=== PATIENT | female | born 1965 | race African-American/Black ===

== ENCOUNTER 2016-12-01 07:40 | Outpatient (CLI) | payer OTHER | END 2016-12-01 07:41 | disposition home or self-care (01) | DX: E11.9 Type 2 diabetes mellitus without complications (principal); M79.662 Pain in left lower leg ==

== ENCOUNTER 2017-03-17 07:45 | Outpatient (CLI) | payer OTHER | END 2017-03-17 07:46 | disposition home or self-care (01) | DX: E11.9 Type 2 diabetes mellitus without complications (principal); I10 Essential (primary) hypertension ==

== ENCOUNTER 2017-10-13 14:30 | Outpatient (CLI) | payer OTHER ==
[2017-10-13 13:21] LABS: ALBUMIN/GLOBULIN RATIO 1.1 (1.0-2.2); BILIRUBIN,TOTAL 0.6 mg/dL (0.2-1.0); CALCIUM 9.4 mg/dL (8.5-10.3); CREATININE 0.8 mg/dL (0.4-1.0); HEMOGLOBIN A1C 0.78 g/dL; POTASSIUM 3.9 mmol/L (3.5-5.0); TOTAL PROTEIN 7.4 g/dL (6.7-8.2)
== END 2017-10-13 14:31 | disposition home or self-care (01) ==
LOC: LAB.WCP 14:30
PROVIDERS: ATTEND Family Medicine
DX: M17.4 Other bilateral secondary osteoarthritis of knee (principal); K21.9 Gastro-esophageal reflux disease without esophagitis; E11.9 Type 2 diabetes mellitus without complications; I10 Essential (primary) hypertension
CPT/HCPCS: 36415; 80053; 83036

== ENCOUNTER 2017-11-11 08:00 | Outpatient (CLI) | payer OTHER | END 2017-11-11 08:01 | disposition home or self-care (01) | LOC: LAB.WCP 08:00 | PROVIDERS: ATTEND Family Medicine | DX: J02.9 Acute pharyngitis, unspecified (principal) | CPT/HCPCS: 87070 ==

== ENCOUNTER 2017-12-03 13:37 | Outpatient (CLI) | payer OTHER ==
--- NOTE | 2017-12-03 16:58 | MRI Report ---
EXAM: RIGHT KNEE MRI WITHOUT CONTRAST EXAM DATE: 12/03/2017 03:15 PM. CLINICAL HISTORY: Right knee posterior lateral sprain. COMPARISON: 11/17/2017 radiograph. TECHNIQUE: Multiplanar, multisequence T1-weighted and fluid-sensitive sequences of the knee without c ontrast. Other: None. FINDINGS: Bones: No fractures. Red marrow reconversion is present. Moderate medial compartment, mild lateral co mpartment, and minimal patellofemoral osteophytes are present. Periarticular reactive marrow edema is demonstrated in the medial compartment. Articular Cartilage: The patellofemoral and lateral compartment articular cartilage is intact. There is severe cartilage thinning in the medial compartment. Medial Meniscus: The posterior root of the medial meniscus demonstrates a high-grade partial radial t ear. The body is extruded. Lateral Meniscus: The lateral meniscus is intact. Cruciate Ligaments: The anterior and posterior cruciate ligaments are intact. Collateral Ligaments: The medial collateral and lateral collateral ligamentous structures are intact. Tendons: The quadriceps, patellar, semimembranosus, and popliteus tendons are unremarkable. Musculature: No edema or fatty atrophy. Other: A mild knee effusion is present. A small popliteal cyst is present. No loose bodies. The medi al and lateral retinacula are intact. The subcutaneous tissues and fat pads are unremarkable. IMPRESSION: 1. Moderate osteoarthritis. 2. High-grade partial radial tear of the posterior root of the medial meniscus. 3. Small popliteal cyst. [facility] MUSCULOSKELETAL RADIOLOGY SECTION Referring Provider Line: [phone] SITE ID: [id number]
== END 2017-12-03 13:38 | disposition home or self-care (01) ==
LOC: DI 13:37
PROVIDERS: ATTEND Orthopaedic Surgery
DX: M17.11 Unilateral primary osteoarthritis, right knee (principal); S83.241A Other tear of medial meniscus, current injury, right knee, initial encounter; M71.21 Synovial cyst of popliteal space [Baker], right knee

== ENCOUNTER 2018-02-09 07:42 | Outpatient (CLI) | payer OTHER ==
[2018-02-09 12:31] LABS: ALBUMIN 3.9 g/dL (3.2-5.5); ALBUMIN/GLOBULIN RATIO 1.1 (1.0-2.2); BILIRUBIN,TOTAL 0.5 mg/dL (0.2-1.0); CALCIUM 9.4 mg/dL (8.5-10.3); CREATININE 0.9 mg/dL (0.4-1.0); TOTAL PROTEIN 7.4 g/dL (6.7-8.2)
[2018-02-09 13:24] LABS: HB2 TOTAL 14.4 g/dL; HEMOGLOBIN A1C 0.88 g/dL; HEMOGLOBIN A1C % 7.7 % (4.6-6.2)
== END 2018-02-09 07:43 | disposition home or self-care (01) ==
LOC: LAB.WCP 07:42
PROVIDERS: ATTEND Family Medicine
DX: E11.9 Type 2 diabetes mellitus without complications (principal)
CPT/HCPCS: 36415; 80053; 83036

== ENCOUNTER 2018-04-09 15:50 | Outpatient (CLI) | payer OTHER ==
--- NOTE | 2018-04-13 15:07 | Mammography Report ---
DIGITAL SCREENING MAMMOGRAM: 04/09/2018 TECHNIQUE: Bilateral digital CC and MLO projections. COMPARISON: 04/13/2014, 12/30/2012, 10/10/2011, and 09/30/2010. FINDINGS There are scattered fibroglandular densities. There is increasing bilateral breast density compared with prior studies. Focal areas of new asymmetric density are seen in the upper outer aspect of both breasts and in the inner left breast. No suspicious microcalcifications or skin thickening seen. IMPRESSION GRADUALLY INCREASING BREAST DENSITY COMPARED TO PRIOR STUDIES WITH AREAS OF ASYMMETRY FOR WHICH FURTHER EVALUATION BY SPOT COMPRESSION AND TRUE LATERAL VIEWS AND POSSIBLE ULTRASOUND IS SUGGESTED. BI-RADS 0 - NEEDS ADDITIONAL EVALUATION. STANDARD QUALIFYING STATEMENTS 1. This examination was reviewed with the aid of Computed-Aided Detection (CAD) . 2. A negative or benign imaging report should not delay biopsy if clinically suspicious findings are present. Consider surgical consultation if warranted. More than 5% of cancers are not identified by imaging. 3. Dense breasts may obscure an underlying neoplasm. orig. dictation - incomplete TD: 04/12/2018 16:09 redictation - complete as above TD: 04/13/2018 18:37 revised 04/14/18 prabhu FORMAN
== END 2018-04-09 15:51 | disposition home or self-care (01) ==
LOC: DI 15:50
PROVIDERS: ATTEND Family Medicine
DX: Z12.31 Encounter for screening mammogram for malignant neoplasm of breast (principal)
CPT/HCPCS: 77067

== ENCOUNTER 2018-05-14 12:53 | Outpatient (CLI) | payer OTHER ==
--- NOTE | 2018-05-14 13:27 | Mammography Report ---
Procedure Date: 05/14/2018 Accession Number: [id number] / [id number] Procedure: MICHAEL - Diag Special Views Dig Bilat CPT Code: FULL RESULT: EXAM: Diag Special Views Dig Bilat DATE: 05/14/2018 1:24 PM CLINICAL HISTORY: Bilateral asymmetries TECHNIQUE: Bilateral true lateral and spot compression views COMPARISON: 04/09/2018, 04/13/2014, 12/30/2012, 10/10/2011, 09/30/2010 FINDINGS: The breasts demonstrate scattered fibroglandular densities bilaterally. The regions of asymmetry dissipated evenly on additional compression. No underlying mass lesion or architectural distortion is identified. Coarse, typically benign calcifications are present. IMPRESSION: Benign findings RECOMMENDATION: Recommend routine annual Screening mammography unless otherwise clinically indicated. BIRADS CATEGORY 2: Benign findings STANDARD QUALIFYING STATEMENTS: 1. This examination was reviewed with the aid of Computer-Aided Detection (CAD). 2. A negative or benign imaging report should not delay biopsy if clinically suspicious findings are present. Consider surgical consultation if warrented. More than 5% of cancers are not identified by imaging. 3. Dense breasts may obscure an underlying neoplasm.
== END 2018-05-14 12:54 | disposition home or self-care (01) ==
LOC: DI 12:53
PROVIDERS: ATTEND Family Medicine
DX: N63.11 Unspecified lump in the right breast, upper outer quadrant (principal); N63.21 Unspecified lump in the left breast, upper outer quadrant; N63.24 Unspecified lump in the left breast, lower inner quadrant
CPT/HCPCS: 77066

== ENCOUNTER 2018-06-05 09:05 | Outpatient (CLI) | payer OTHER ==
[2018-06-05 09:44] LABS: CHOL/HDL RATIO 5.2 (<4.4); CHOLESTEROL 206 mg/dL; HDL CHOLESTEROL 40 mg/dL; LDL CHOLESTEROL,CALCULATED 139 mg/dL; LDL/HDL RATIO 3.5 (<4.4); VLDL CHOLESTEROL 27 mg/dL
[2018-06-05 09:46] LABS: HB2 TOTAL 14.2 g/dL; HEMOGLOBIN A1C 0.9 g/dL
== END 2018-06-05 09:06 | disposition home or self-care (01) ==
LOC: LAB 09:05
PROVIDERS: ATTEND Physician Assistant
DX: L70.0 Acne vulgaris (principal); L81.4 Other melanin hyperpigmentation; Z71.89 Other specified counseling; E11.9 Type 2 diabetes mellitus without complications; E78.5 Hyperlipidemia, unspecified
CPT/HCPCS: 80061; 82043; 83036; 83721; 84132

== ENCOUNTER 2018-09-07 08:18 | Outpatient (CLI) | payer OTHER ==
[2018-09-07 13:07] LABS: ALBUMIN 3.7 g/dL (3.2-5.5); ALBUMIN/GLOBULIN RATIO 1.1 (1.0-2.2); BILIRUBIN,TOTAL 0.7 mg/dL (0.2-1.0); CALCIUM 9.5 mg/dL (8.5-10.3); CREATININE 0.7 mg/dL (0.4-1.0); TOTAL PROTEIN 7.2 g/dL (6.7-8.2)
[2018-09-07 13:33] LABS: HB2 TOTAL 13.5 g/dL; HEMOGLOBIN A1C 0.76 g/dL; HEMOGLOBIN A1C % 7.3 % (4.6-6.2)
== END 2018-09-07 08:19 | disposition home or self-care (01) ==
LOC: LAB.WCP 08:18
PROVIDERS: ATTEND Family Medicine
DX: E11.9 Type 2 diabetes mellitus without complications (principal)
CPT/HCPCS: 36415; 80053; 83036

== ENCOUNTER 2018-12-10 07:45 | Outpatient (CLI) | payer OTHER ==
[2018-12-10 13:56] LABS: ALBUMIN 3.6 g/dL (3.2-5.5); ALBUMIN/GLOBULIN RATIO 1.1 (1.0-2.2); BILIRUBIN,TOTAL 0.4 mg/dL (0.2-1.0); CALCIUM 9.4 mg/dL (8.5-10.3); CREATININE 0.7 mg/dL (0.4-1.0)
[2018-12-10 14:54] LABS: HB2 TOTAL 13.3 g/dL; HEMOGLOBIN A1C 0.73 g/dL; HEMOGLOBIN A1C % 7.2 % (4.6-6.2)
== END 2018-12-10 23:59 | disposition home or self-care (01) ==
LOC: LAB.WCP 07:45
PROVIDERS: ATTEND Family Medicine
DX: E11.9 Type 2 diabetes mellitus without complications (principal)
CPT/HCPCS: 36415; 80053; 82043; 83036

== ENCOUNTER 2019-04-27 08:00 | Outpatient (CLI) | payer OTHER ==
[2019-04-27 18:57] LABS: HEMOGLOBIN A1C 0.74 g/dL; HEMOGLOBIN A1C % 7.4 % (4.6-6.2)
== END 2019-04-27 23:59 | disposition home or self-care (01) ==
LOC: LAB.WCP 08:00
PROVIDERS: ATTEND Family Medicine
DX: E11.9 Type 2 diabetes mellitus without complications (principal)
CPT/HCPCS: 36415; 83036

== ENCOUNTER 2019-10-28 07:52 | Outpatient (CLI) | payer OTHER ==
[2019-10-28 13:03] LABS: CREATININE,URINE 274.6 mg/dL; MICROALBUMIN,URINE 6.6 mg/dL (0-300.0)
[2019-10-28 13:17] LABS: CALCIUM 9.4 mg/dL (8.5-10.3)
[2019-10-28 13:34] LABS: HB2 TOTAL 13.3 g/dL; HEMOGLOBIN A1C 0.91 g/dL; HEMOGLOBIN A1C % 8.4 % (4.6-6.2)
== END 2019-10-28 23:59 | disposition home or self-care (01) ==
LOC: LAB.WCP 07:52
PROVIDERS: ATTEND Family Medicine
DX: E11.9 Type 2 diabetes mellitus without complications (principal)
CPT/HCPCS: 36415; 80048; 82043; 82570; 83036; 84443

== ENCOUNTER 2020-01-31 08:03 | Outpatient (CLI) | payer OTHER ==
[2020-01-31 12:28] LABS: CALCIUM 9.5 mg/dL (8.5-10.3)
[2020-01-31 12:40] LABS: CREATININE,URINE 135.3 mg/dL; MICROALBUM/CREATININE RATIO,UR 15.5 ug/mg (<30.0); MICROALBUMIN,URINE 2.1 mg/dL (0-300.0)
[2020-01-31 12:58] LABS: HEMOGLOBIN A1C 0.93 g/dL; HEMOGLOBIN A1C % 8.2 % (4.6-6.2)
== END 2020-01-31 23:59 | disposition home or self-care (01) ==
LOC: LAB.WCP 08:03
PROVIDERS: ATTEND Family Medicine
DX: L70.9 Acne, unspecified (principal); I25.10 Atherosclerotic heart disease of native coronary artery without angina pectoris; E11.9 Type 2 diabetes mellitus without complications; I10 Essential (primary) hypertension
CPT/HCPCS: 36415; 80048; 82043; 82570; 83036

== ENCOUNTER 2020-05-07 10:02 | Outpatient (CLI) | payer OTHER ==
[2020-05-07 12:58] LABS: CALCIUM 9.3 mg/dL (8.5-10.3); CREATININE 0.9 mg/dL (0.4-1.0)
[2020-05-07 13:14] LABS: HEMOGLOBIN A1C 0.93 g/dL; HEMOGLOBIN A1C % 8.2 % (4.6-6.2)
== END 2020-05-07 23:59 | disposition home or self-care (01) ==
LOC: LAB.WCP 10:02
PROVIDERS: ATTEND Family Medicine
DX: E11.9 Type 2 diabetes mellitus without complications (principal)
CPT/HCPCS: 36415; 80048; 83036

== ENCOUNTER 2020-10-11 16:15 | Outpatient (CLI) | payer OTHER ==
--- NOTE | 2020-10-11 16:42 | XRAY Report ---
PROCEDURE: Knee 4 View LT INDICATIONS: LEFT KNEE PAIN TECHNIQUE: 4 views of the left knee(s) were acquired. COMPARISON: None. FINDINGS: Bones: No fractures or dislocations. Moderate medial femoral tibial compartment osteoarthritis is se en. No suspicious bony lesions. Soft tissues: No significant joint effusion. No suspicious soft tissue calcifications. IMPRESSION: Moderate medial femoral tibial compartment osteoarthritis. No fracture or dislocation. N o significant joint effusion. Reviewed by: Maxwell Carter MD on 10/11/2020 4:41 PM PST Approved by: Maxwell Carter MD on 10/11/2020 4:41 PM PST Station ID: [id number]
== END 2020-10-11 16:16 | disposition home or self-care (01) ==
LOC: DI 16:15
PROVIDERS: ATTEND Family Medicine
DX: M17.12 Unilateral primary osteoarthritis, left knee (principal)

== ENCOUNTER 2020-11-05 08:00 | Outpatient (CLI) | payer OTHER ==
[2020-11-05 17:58] LABS: BASOPHILS # (AUTO) 0.1 10^3/uL (0.0-0.1); BASOPHILS % (AUTO) 1.1 %; EOSINOPHILS # (AUTO) 0.3 10^3/uL (0.0-0.7); EOSINOPHILS % (AUTO) 6.2 %; HGB - HEMOGLOBIN 14.3 g/dL (12.0-16.0); LYMPHOCYTES # (AUTO) 1.4 10^3/uL (1.5-3.5); LYMPHOCYTES % (AUTO) 25.3 %; MEAN CORPUSCULAR HEMOGLOBIN 29.5 pg (27.0-31.0); MEAN CORPUSCULAR HGB CONC 31.2 g/dL (32.0-36.0); MEAN CORPUSCULAR VOLUME 94.6 fL (81.0-99.0); MEAN PLATELET VOLUME 9.9 fL (7.9-10.8); MONOCYTES # (AUTO) 0.7 10^3/uL (0.0-1.0); MONOCYTES % (AUTO) 12.2 %; NEUTROPHILS # (AUTO) 2.9 10^3/uL (1.5-6.6); NEUTROPHILS % (AUTO) 54.3 %; PLT - PLATELET COUNT 364 10^3/uL (130-450); RED BLOOD COUNT 4.84 10^6/uL (4.20-5.40); RED CELL DISTRIBUTION WIDTH 13.7 % (12.0-15.0); WHITE BLOOD COUNT 5.3 x10^3/uL (4.8-10.8)
[2020-11-05 18:09] LABS: ALBUMIN 4.1 g/dL (3.2-5.5); ALBUMIN/GLOBULIN RATIO 1.2 (1.0-2.2); BILIRUBIN,TOTAL 0.4 mg/dL (0.2-1.0); CALCIUM 9.7 mg/dL (8.5-10.3); CREATININE 0.9 mg/dL (0.4-1.0); TOTAL PROTEIN 7.6 g/dL (6.7-8.2)
== END 2020-11-05 23:59 | disposition home or self-care (01) ==
LOC: LAB.WCP 08:00
PROVIDERS: ATTEND Family Medicine
DX: R10.9 Unspecified abdominal pain (principal); N93.8 Other specified abnormal uterine and vaginal bleeding
CPT/HCPCS: 36415; 80053; 85025

== ENCOUNTER 2020-11-21 15:54 | Outpatient (CLI) | payer OTHER ==
--- NOTE | 2020-11-22 13:30 | Ultrasound Report ---
PROCEDURE: Pelvic w/Transvaginal INDICATIONS: DYSFUNCTIONAL UTERINE BLEEDING, ABD PAIN TECHNIQUE: Real-time scanning was performed of the pelvic organs, with image documentation. Additional endovagi nal scanning was necessary due to incomplete visualization of the adnexal and endometrial structures by transabdominal scanning. COMPARISON: CT abdomen and pelvis dated 08/17/2007. FINDINGS: Transabdominal scanning: Limited scanning through the kidneys shows no hydronephrosis. No pathologi c free abdominal or pelvic fluid. Endovaginal scanning: Uterus: Uterus is prominent in size at 8.7 x 5.8 x 7.3 cm. There are 3 uterine fibroids identified. One is noted in the right anterior uterus and is intramural in location measuring 2.6 x 3.4 x 1.9 cm. Another is seen in the left anterior uterus, also intramural in location measuring 2.9 x 3.1 x 2.9 c m. The third is seen in a submucosal location within the midline, central uterus measuring 2.1 x 2.0 x 1.8 cm. Uterine echotexture is heterogeneous. Nabothian cysts are noted within the cervix. The endo metrium measures 7 mm in combined thickness. Ovaries: Right ovary not well visualized. Left ovary measures 1.9 x 0.8 x 1.7 cm with ovarian volume of 1.3 mL. There is a minimally complicated left ovarian cyst measuring 1.5 x 0.6 x 0.9 cm demonstra ting a single thin septation versus 2 immediately adjacent simple cysts. IMPRESSION: Multi fibroid uterus with a 2.1 cm submucosal uterine fibroid noted in the midline, central uterus. T his may explain patient's symptoms of dysfunctional uterine bleeding. Unremarkable left ovary. Right ovary is not well-visualized. Reviewed by: Papito Conroy MD on 11/22/2020 12:29 PM [facility] Approved by: Papito oCnroy MD on 11/22/2020 12:29 PM [facility] Station ID: [id number]
== END 2020-11-21 15:55 | disposition home or self-care (01) ==
LOC: DI 15:54
PROVIDERS: ATTEND Family Medicine
DX: N93.8 Other specified abnormal uterine and vaginal bleeding (principal); R10.9 Unspecified abdominal pain; D25.1 Intramural leiomyoma of uterus; D25.0 Submucous leiomyoma of uterus

== ENCOUNTER 2020-12-13 09:06 | Outpatient (CLI) | payer OTHER ==
--- NOTE | 2020-12-14 07:57 | Mammography Report ---
BILATERAL DIGITAL DIAGNOSTIC MAMMOGRAM 3D/2D: 12/13/2020 CLINICAL: Intermitten pain in bilateral breasts. Comparison is made to exams dated: 04/09/2018 mammogram and 04/13/2014 mammogram - [facility]. There are scattered fibroglandular elements in both breasts. No significant masses, calcifications, or other findings are seen in either breast. IMPRESSION: NEGATIVE There is no abnormality seen in either breast to correspond with the pain in the outer aspect, howeve r, clinical followup is recommended. There is no mammographic evidence of malignancy. A 1 year screening mammogram is recommended. This exam was interpreted at Station ID: [id number]. NOTE: For mammograms, a report in lay terms will be sent to the patient. Approximately 15% of breast malignancies will not be visualized mammographically. In the management of a palpable breast mass, a negative mammogram must not discourage biopsy of a clinically suspicious lesion. Electronically Signed By: Jorge Orosco M.D. ddp/:12/13/2020 09:38:43 ACR BI-RADS Category 1: Negative 3341F PARENCHYMAL PATTERN: (A) - The breast(s) demonstrate(s) scattered fibroglandular densities. BI-RADS CATEGORY: (1) - 1 RECOMMENDATION: (ANNUAL) - Recommend routine annual screening mammography. [id number] 1 year screening LATERALITY: (B)
== END 2020-12-13 09:07 | disposition home or self-care (01) ==
LOC: DI 09:06
PROVIDERS: ATTEND Family Medicine
DX: N64.4 Mastodynia (principal)

== ENCOUNTER 2020-12-20 08:00 | Outpatient (CLI) | payer OTHER | END 2020-12-20 08:01 | disposition home or self-care (01) | LOC: LAB 08:00 | PROVIDERS: ATTEND Obstetrics & Gynecology | DX: N93.8 Other specified abnormal uterine and vaginal bleeding (principal); N95.0 Postmenopausal bleeding | CPT/HCPCS: 36415; 82670; 83001 ==

== ENCOUNTER 2020-12-31 07:00 | Outpatient (CLI) | payer OTHER ==
--- NOTE | 2020-12-31 15:14 | XRAY Report ---
PROCEDURE: Foot 3 View RT INDICATIONS: RIGHT FOOT PAIN TECHNIQUE: 3 views of the foot were acquired. COMPARISON: 04/04/2016 FINDINGS: No fracture. Large plantar calcaneal spur. Scattered subchondral sclerosis and spurring. Moderate fi rst MTP joint degeneration. Marginal lucencies possibly erosion seen at the first MTP joint. IMPRESSION: First MTP joint degeneration, with marginal lucencies raising possibility of erosions, which appear p rogressed since 04/04/2016. Large plantar calcaneal spur as before Reviewed by: Star Martinez MD on 12/31/2020 3:13 PM PST Approved by: Star Martinez MD on 12/31/2020 3:13 PM PST Station ID: [id number]
== END 2020-12-31 23:59 | disposition home or self-care (01) ==
LOC: DI.N 07:00
PROVIDERS: ATTEND Nurse Practitioner
DX: M79.671 Pain in right foot (principal); M19.071 Primary osteoarthritis, right ankle and foot; M77.31 Calcaneal spur, right foot

== ENCOUNTER 2021-01-15 08:00 | Outpatient (CLI) | payer OTHER ==
[2021-01-15 12:12] LABS: CREATININE,URINE 112.2 mg/dL; MICROALBUM/CREATININE RATIO,UR 45.5 ug/mg (<30.0); MICROALBUMIN,URINE 5.1 mg/dL (0-300.0)
[2021-01-15 12:22] LABS: CALCIUM 9.6 mg/dL (8.5-10.3); CREATININE 0.9 mg/dL (0.4-1.0); POTASSIUM 4.4 mmol/L (3.5-5.0)
[2021-01-15 13:09] LABS: ESTIMATED AVERAGE GLUCOSE 183 mg/dL (70-100)
== END 2021-01-15 23:59 | disposition home or self-care (01) ==
LOC: LAB.WCP 08:00
PROVIDERS: ATTEND Family Medicine
DX: I25.10 Atherosclerotic heart disease of native coronary artery without angina pectoris (principal); E11.9 Type 2 diabetes mellitus without complications; I10 Essential (primary) hypertension; Z79.4 Long term (current) use of insulin
CPT/HCPCS: 36415; 80048; 82043; 82570; 83036

== ENCOUNTER 2021-04-18 08:00 | Outpatient (CLI) | payer OTHER ==
[2021-04-18 12:10] LABS: ALBUMIN 4.1 g/dL (3.2-5.5); ALBUMIN/GLOBULIN RATIO 1.2 (1.0-2.2); BILIRUBIN,TOTAL 0.6 mg/dL (0.2-1.0); CALCIUM 9.8 mg/dL (8.5-10.3); CREATININE 0.9 mg/dL (0.4-1.0); POTASSIUM 4.3 mmol/L (3.5-5.0); TOTAL PROTEIN 7.6 g/dL (6.7-8.2)
[2021-04-18 12:28] LABS: ESTIMATED AVERAGE GLUCOSE 200 mg/dL (70-100); HEMOGLOBIN A1c% 8.6 % (4.27-6.07)
== END 2021-04-18 23:59 | disposition home or self-care (01) ==
LOC: LAB.WCP 08:00
PROVIDERS: ATTEND Internal Medicine
DX: E11.9 Type 2 diabetes mellitus without complications (principal)
CPT/HCPCS: 36415; 80053; 83036

== ENCOUNTER 2021-04-25 08:00 | Outpatient (CLI) | payer OTHER ==
[2021-04-25 11:50] LABS: BASOPHILS % (AUTO) 0.7 %; EOSINOPHILS % (AUTO) 23.5 %; HCT - HEMATOCRIT 45.5 % (37.0-47.0); HGB - HEMOGLOBIN 14.4 g/dL (12.0-16.0); LYMPHOCYTES % (AUTO) 23.9 %; MEAN CORPUSCULAR HEMOGLOBIN 29.5 pg (27.0-31.0); MEAN CORPUSCULAR HGB CONC 31.6 g/dL (32.0-36.0); MEAN CORPUSCULAR VOLUME 93.2 fL (81.0-99.0); MEAN PLATELET VOLUME 10.2 fL (7.9-10.8); MONOCYTES % (AUTO) 10.1 %; NEUTROPHILS % (AUTO) 40.3 %; PLT - PLATELET COUNT 343 10^3/uL (130-450); RED BLOOD COUNT 4.88 10^6/uL (4.20-5.40); RED CELL DISTRIBUTION WIDTH 13.5 % (12.0-15.0); WHITE BLOOD COUNT 7.6 x10^3/uL (4.8-10.8)
[2021-04-25 11:57] LABS: ABNORMAL LYMPHS % (MANUAL) 0 %; BAND NEUTROPHILS % (MANUAL) 0 %
[2021-04-25 12:25] LABS: BASOPHILS # (MANUAL) 0.1 10^3/uL (0-0.1); BASOPHILS % (MANUAL) 1 %; DIFFERENTIAL COMMENT MANUAL DIFFERENTIAL; EOSINOPHILS # (MANUAL) 2.3 10^3/uL (0-0.7); LYMPHOCYTES # (MANUAL) 1.7 10^3/uL (1.5-3.5); LYMPHOCYTES % (MANUAL) 22 %; MONOCYTES # (MANUAL) 0.8 10^3/uL (0.0-1.0); NEUTROPHILS # (MANUAL) 2.7 10^3/uL (1.5-6.6); PLATELET ESTIMATE, MANUAL NORMAL (130-450,000) (NORMAL); PLATELET MORPHOLOGY NORMAL APPEARANCE (NORMAL); RBC MORPHOLOGY (MULTIPLE) NORMAL APPEARANCE (NORMAL)
[2021-04-25 12:40] LABS: ALBUMIN 4.2 g/dL (3.2-5.5); BILIRUBIN,DIRECT 0.1 mg/dL (0.1-0.5); BILIRUBIN,TOTAL 0.6 mg/dL (0.2-1.0); TOTAL PROTEIN 7.9 g/dL (6.7-8.2)
== END 2021-04-25 23:59 | disposition home or self-care (01) ==
LOC: LAB.WCP 08:00
PROVIDERS: ATTEND Internal Medicine
DX: R10.9 Unspecified abdominal pain (principal)
CPT/HCPCS: 36415; 80076; 82150; 83690; 85025

== ENCOUNTER 2021-05-06 06:55 | Outpatient (CLI) | payer OTHER ==
--- NOTE | 2021-05-06 08:31 | Ultrasound Report ---
PROCEDURE: Abdomen Complete INDICATIONS: ABD PAIN TECHNIQUE: Real-time scanning was performed of the abdominal and retroperitoneal organs, with image documentatio n. COMPARISON: None. FINDINGS: Liver: Liver is normal in size and homogeneous in echotexture. Liver is diffusely echogenic. No foca l hepatic mass lesions. Gallbladder: Gallbladder sonographically normal. No gallstones. No gallbladder wall thickening with g allbladder wall measuring 1.5 mm. No pericholecystic fluid. No sonographic Moreau sign. Biliary ducts: Intrahepatic bile ducts are non-dilated. Extrahepatic bile duct caliber measures 3.2 mm. Normal is 6-7 mm or less in diameter, or 10 mm or less post-cholecystectomy. Pancreas: Visualized portions of the pancreas are sonographically normal. Spleen: Spleen is normal in size and homogeneous in echotexture. Kidneys: Kidneys are normal in size and echotexture. Right kidney measures 10.9 cm long; left kidne y measures 0.0 cm long. No hydronephrosis or nephrolithiasis. No solid masses. 1.5 x 1.4 x 1.5 cm right renal cyst. 2.0 x 1.3 x 1.8 and 2.4 x 2.2 x 2.1 cm left renal cysts. Aorta: Visualized aorta is normal in caliber at less than 3 cm. Iliacs: Obscured by bowel gas and cannot be evaluated. IVC: Intrahepatic inferior vena cava is patent. Miscellaneous: No free abdominal fluid. IMPRESSION: 1. Echogenic liver. Finding typically represents fatty infiltration, however the finding is nonspecif ic and other etiologies including hepatic cirrhosis can produce a similar appearance. Recommend corre lation with clinical and laboratory data. 2. Otherwise, normal abdominal sonogram. Reviewed by: Jodi Hurtado MD, PhD on 05/06/2021 8:30 AM PDT Approved by: Jodi Hurtado MD, PhD on 05/06/2021 8:30 AM PDT Station ID: [id number]
== END 2021-05-06 06:56 | disposition home or self-care (01) ==
LOC: DI 06:55
PROVIDERS: ATTEND Internal Medicine
DX: R10.9 Unspecified abdominal pain (principal); K76.9 Liver disease, unspecified

== ENCOUNTER 2021-06-10 16:33 | Outpatient (CLI) | payer OTHER | END 2021-06-10 16:34 | disposition home or self-care (01) | LOC: COV 16:33 | PROVIDERS: ATTEND Internal Medicine | DX: Z01.812 Encounter for preprocedural laboratory examination (principal); Z20.822 Contact with and (suspected) exposure to COVID-19 ==

== ENCOUNTER 2021-08-05 07:51 | Outpatient (CLI) | payer OTHER ==
[2021-08-05 12:20] LABS: BUN - BLOOD UREA NITROGEN 21 mg/dL (6-20); CALCIUM 9.5 mg/dL (8.5-10.3); CARBON DIOXIDE - CO2 23 mmol/L (21-32); CHLORIDE 103 mmol/L (101-111); CHOL/HDL RATIO 4.2 (<4.4); CHOLESTEROL 200 mg/dL; GFR - MDRD 69 (>89); GLUCOSE 178 mg/dL (70-100); HDL CHOLESTEROL 48 mg/dL; LDL CHOLESTEROL,CALCULATED 127 mg/dL; LDL/HDL RATIO 2.6 (<4.4); POTASSIUM 4.7 mmol/L (3.5-5.0); SODIUM 137 mmol/L (135-145); TRIGLYCERIDES 123 mg/dL; VLDL CHOLESTEROL 25 mg/dL
[2021-08-05 12:34] LABS: CREATININE,URINE 136.4 mg/dL; MICROALBUM/CREATININE RATIO,UR 10.3 ug/mg (<30.0); MICROALBUMIN,URINE 1.4 mg/dL (0-300.0)
[2021-08-05 12:51] LABS: ESTIMATED AVERAGE GLUCOSE 183 mg/dL (70-100)
== END 2021-08-05 23:59 | disposition home or self-care (01) ==
LOC: LAB.WCP 07:51
PROVIDERS: ATTEND Internal Medicine
DX: E11.8 Type 2 diabetes mellitus with unspecified complications (principal); Z79.4 Long term (current) use of insulin
CPT/HCPCS: 36415; 80048; 80061; 82043; 82570; 83036; 83721

== ENCOUNTER 2022-01-22 08:02 | Outpatient (CLI) | payer OTHER ==
[2022-01-22 13:15] LABS: POTASSIUM 4.2 mmol/L (3.5-5.0)
[2022-01-22 13:32] LABS: ESTIMATED AVERAGE GLUCOSE 189 mg/dL (70-100); HEMOGLOBIN A1c% 8.2 % (4.27-6.07)
== END 2022-01-22 08:03 | disposition home or self-care (01) ==
LOC: LAB.N 08:02
PROVIDERS: ATTEND Internal Medicine
DX: E11.8 Type 2 diabetes mellitus with unspecified complications (principal); Z79.4 Long term (current) use of insulin
CPT/HCPCS: 36415; 80048; 83036

== ENCOUNTER 2022-01-30 07:29 | Outpatient (CLI) | payer OTHER ==
--- NOTE | 2022-01-30 10:04 | XRAY Report ---
PROCEDURE: Knee 2 View BILAT INDICATIONS: KNEE JOINT PAIN >3 MONTHS TECHNIQUE: 2 views of the bilateral knee(s) were acquired. COMPARISON: X-ray knees 11/17/2017, 10/11/2020 FINDINGS: Bones: No fractures or dislocations. No suspicious bony lesions. There is moderate to severe medial compartment narrowing on the left with periarticular osteophytes. Areas of narrowing as well as periarticular osteophytes have increased compared to prior exam in 2020 . In addition, there is moderate patellofemoral compartment narrowing, unchanged. There is moderate to severe medial compartment narrowing on the right, minimally progressive compared to prior exam. Articular osteophyte is present without erosions. Moderate patellofemoral compartment narrowing is stable. Soft tissues: Minimal bilateral effusions. No suspicious soft tissue calcifications. IMPRESSION: Arthritic changes are present bilaterally most prominent in the medial compartment and progressive co mpared to prior exams. Reviewed by: Kyra Chong MD on 01/30/2022 10:02 AM PDT Approved by: Kyra Chong MD on 01/30/2022 10:02 AM PDT Station ID: [id number]
== END 2022-01-30 07:30 | disposition home or self-care (01) ==
LOC: DI.N 07:29
PROVIDERS: ATTEND Internal Medicine
DX: M17.0 Bilateral primary osteoarthritis of knee (principal)

== ENCOUNTER 2022-04-28 08:09 | Outpatient (CLI) | payer OTHER ==
[2022-04-28 12:03] LABS: CALCIUM 9.8 mg/dL (8.5-10.3); POTASSIUM 4.3 mmol/L (3.5-5.0)
[2022-04-28 12:28] LABS: ESTIMATED AVERAGE GLUCOSE 183 mg/dL (70-100)
== END 2022-04-28 08:10 | disposition home or self-care (01) ==
LOC: LAB.N 08:09
PROVIDERS: ATTEND Internal Medicine
DX: E11.8 Type 2 diabetes mellitus with unspecified complications (principal); Z79.4 Long term (current) use of insulin
CPT/HCPCS: 36415; 80048; 83036

== ENCOUNTER 2022-06-04 09:24 | Outpatient (CLI) | payer OTHER ==
--- NOTE | 2022-06-04 16:14 | Mammography Report ---
BILATERAL DIGITAL SCREENING MAMMOGRAM 3D/2D: 06/04/2022 CLINICAL: Routine screening. Comparison is made to exams dated: 12/13/2020 mammogram, 05/14/2018 mammogram, 04/09/2018 mammogram, and mammogram - [facility]. There are scattered fibroglandular elements in bot h breasts. No significant masses, calcifications, or other findings are seen in either breast. There has been no significant interval change. IMPRESSION: NEGATIVE There is no mammographic evidence of malignancy. A 1 year screening mammogram is recommended. Based on the Tyrer Cuzick model (a risk assessment model) the patients lifetime risk is 8.1% and her 10 year risk is 3.1%. According to the ACR, ACS, and NCCN guidelines, an annual breast MRI exam avani g with mammogram is recommended if the patients lifetime risk is 20% or greater. This exam was interpreted at Station ID: [id number]. NOTE: For mammograms, a report in lay terms will be sent to the patient. Approximately 15% of breast malignancies will not be visualized mammographically. In the management of a palpable breast mass, a negative mammogram must not discourage biopsy of a clinically suspicious lesion. Electronically Signed By: Cipriano amador/penrad:06/04/2022 13:50:30 ACR BI-RADS Category 1: Negative 3341F PARENCHYMAL PATTERN: (A) - The breast(s) demonstrate(s) scattered fibroglandular densities. BI-RADS CATEGORY: (1) - 1 RECOMMENDATION: (ANNUAL) - Recommend routine annual screening mammography. [id number] 1 year screening LATERALITY: (B)
== END 2022-06-04 09:25 | disposition home or self-care (01) ==
LOC: DI.N 09:24
PROVIDERS: ATTEND Nurse Practitioner
DX: Z12.31 Encounter for screening mammogram for malignant neoplasm of breast (principal)

== ENCOUNTER 2023-01-05 08:11 | Outpatient (CLI) | payer OTHER ==
[2023-01-05 12:46] LABS: BASOPHILS # (AUTO) 0.1 10^3/uL (0.0-0.1); EOSINOPHILS # (AUTO) 0.4 10^3/uL (0.0-0.7); EOSINOPHILS % (AUTO) 7.1 %; HCT - HEMATOCRIT 47.4 % (37.0-47.0); HGB - HEMOGLOBIN 14.9 g/dL (12.0-16.0); LYMPHOCYTES # (AUTO) 1.5 10^3/uL (1.5-3.5); LYMPHOCYTES % (AUTO) 28.5 %; MEAN CORPUSCULAR HEMOGLOBIN 28.2 pg (27.0-31.0); MEAN CORPUSCULAR HGB CONC 31.4 g/dL (32.0-36.0); MEAN CORPUSCULAR VOLUME 89.6 fL (81.0-99.0); MEAN PLATELET VOLUME 10.5 fL (7.9-10.8); MONOCYTES # (AUTO) 0.7 10^3/uL (0.0-1.0); MONOCYTES % (AUTO) 12.5 %; NEUTROPHILS # (AUTO) 2.6 10^3/uL (1.5-6.6); PLT - PLATELET COUNT 341 10^3/uL (130-450); RED BLOOD COUNT 5.29 10^6/uL (4.20-5.40); RED CELL DISTRIBUTION WIDTH 14.5 % (12.0-15.0); WHITE BLOOD COUNT 5.2 x10^3/uL (4.8-10.8)
[2023-01-05 13:20] LABS: CREATININE,URINE 82.3 mg/dL; MICROALBUM/CREATININE RATIO,UR 37.7 ug/mg (<30.0); MICROALBUMIN,URINE 3.1 mg/dL (0-300.0)
[2023-01-05 13:21] LABS: ALBUMIN/GLOBULIN RATIO 1.1 (1.0-2.2); ALKALINE PHOSPHATASE 52 IU/L (42-121); ALT ALANINE AMINOTRANSFERASE 22 IU/L (10-60); AST ASPARTATE AMINOTRANSFERASE 19 IU/L (10-42); BILIRUBIN,TOTAL 0.4 mg/dL (0.2-1.0); BUN - BLOOD UREA NITROGEN 27 mg/dL (6-20); CALCIUM 9.7 mg/dL (8.5-10.3); CARBON DIOXIDE - CO2 22 mmol/L (21-32); CHLORIDE 103 mmol/L (101-111); CHOL/HDL RATIO 4.2 (<4.4); CHOLESTEROL 204 mg/dL; GFR - MDRD 69 (>89); GLUCOSE 221 mg/dL (70-100); HDL CHOLESTEROL 49 mg/dL; LDL CHOLESTEROL,CALCULATED 128 mg/dL; LDL/HDL RATIO 2.6 (<4.4); POTASSIUM 4.3 mmol/L (3.5-5.0); SODIUM 134 mmol/L (135-145); TOTAL PROTEIN 7.7 g/dL (6.7-8.2); TRIGLYCERIDES 133 mg/dL; VLDL CHOLESTEROL 27 mg/dL
[2023-01-05 13:50] LABS: THYROID STIMULATING HORMONE 4.1 uIU/mL (0.34-5.60)
[2023-01-05 14:00] LABS: ESTIMATED AVERAGE GLUCOSE 183 mg/dL (70-100)
== END 2023-01-05 08:12 | disposition home or self-care (01) ==
LOC: LAB.N 08:11
PROVIDERS: ATTEND Internal Medicine
DX: I10 Essential (primary) hypertension (principal); E78.5 Hyperlipidemia, unspecified; E11.8 Type 2 diabetes mellitus with unspecified complications; Z13.29 Encounter for screening for other suspected endocrine disorder; Z79.4 Long term (current) use of insulin
CPT/HCPCS: 36415; 80053; 80061; 82043; 82570; 83036; 83721; 84443; 85025

== ENCOUNTER 2023-05-05 08:04 | Outpatient (CLI) | payer OTHER ==
[2023-05-05 12:01] LABS: ESTIMATED AVERAGE GLUCOSE 186 mg/dL (70-100); HEMOGLOBIN A1c% 8.1 % (4.27-6.07)
[2023-05-05 12:24] LABS: ALBUMIN 3.6 g/dL (3.2-5.5); ALBUMIN/GLOBULIN RATIO 0.9 (1.0-2.2); ALKALINE PHOSPHATASE 43 IU/L (42-121); ALT ALANINE AMINOTRANSFERASE 32 IU/L (10-60); AST ASPARTATE AMINOTRANSFERASE 29 IU/L (10-42); BILIRUBIN,TOTAL 0.6 mg/dL (0.2-1.0); BUN - BLOOD UREA NITROGEN 22 mg/dL (6-20); CALCIUM 9.2 mg/dL (8.5-10.3); CARBON DIOXIDE - CO2 24 mmol/L (21-32); CHLORIDE 108 mmol/L (101-111); CHOL/HDL RATIO 3.5 (<4.4); CHOLESTEROL 174 mg/dL; CREATININE 0.9 mg/dL (0.4-1.0); GFR - MDRD 77 (>89); GLUCOSE 179 mg/dL (70-100); HDL CHOLESTEROL 50 mg/dL; LDL CHOLESTEROL,CALCULATED 93 mg/dL; LDL/HDL RATIO 1.9 (<4.4); POTASSIUM 4.3 mmol/L (3.5-5.0); SODIUM 139 mmol/L (135-145); TOTAL PROTEIN 7.4 g/dL (6.7-8.2); TRIGLYCERIDES 153 mg/dL; VLDL CHOLESTEROL 31 mg/dL
== END 2023-05-05 08:05 | disposition home or self-care (01) ==
LOC: LAB.N 08:04
PROVIDERS: ATTEND Internal Medicine
DX: E78.5 Hyperlipidemia, unspecified (principal); E11.8 Type 2 diabetes mellitus with unspecified complications; Z79.4 Long term (current) use of insulin
CPT/HCPCS: 36415; 80053; 80061; 83036; 83721

== ENCOUNTER 2023-09-10 07:45 | Outpatient (CLI) | payer OTHER ==
[2023-09-10 12:34] LABS: ALBUMIN 4.1 g/dL (3.2-5.5); ALBUMIN/GLOBULIN RATIO 1.3 (1.0-2.2); ALKALINE PHOSPHATASE 52 IU/L (42-121); ALT ALANINE AMINOTRANSFERASE 18 IU/L (10-60); AST ASPARTATE AMINOTRANSFERASE 15 IU/L (10-42); BILIRUBIN,TOTAL 0.3 mg/dL (0.2-1.0); BUN - BLOOD UREA NITROGEN 27 mg/dL (6-20); CALCIUM 9.8 mg/dL (8.5-10.3); CARBON DIOXIDE - CO2 25 mmol/L (21-32); CHLORIDE 106 mmol/L (101-111); CHOL/HDL RATIO 3.5 (<4.4); CHOLESTEROL 166 mg/dL; CREATININE 0.9 mg/dL (0.6-1.3); GFR - MDRD 77 (>89); GLUCOSE 188 mg/dL (74-104); HDL CHOLESTEROL 47 mg/dL; LDL CHOLESTEROL,CALCULATED 77 mg/dL; LDL/HDL RATIO 1.6 (<4.4); POTASSIUM 4.3 mmol/L (3.5-4.5); SODIUM 137 mmol/L (135-145); TOTAL PROTEIN 7.3 g/dL (6.4-8.9); TRIGLYCERIDES 212 mg/dL (48-352); VLDL CHOLESTEROL 42 mg/dL
[2023-09-10 12:56] LABS: ESTIMATED AVERAGE GLUCOSE 174 mg/dL (70-100); HEMOGLOBIN A1c% 7.7 % (4.27-6.07)
[2023-09-10 14:12] LABS: CREATININE,URINE 66.2 mg/dL; MICROALBUM/CREATININE RATIO,UR 33.2 ug/mg (<30.0); MICROALBUMIN,URINE 2.2 mg/dL
== END 2023-09-10 07:46 | disposition home or self-care (01) ==
LOC: LAB.N 07:45
PROVIDERS: ATTEND Internal Medicine
DX: I10 Essential (primary) hypertension (principal); E78.5 Hyperlipidemia, unspecified; E11.8 Type 2 diabetes mellitus with unspecified complications; Z79.4 Long term (current) use of insulin
CPT/HCPCS: 36415; 80053; 80061; 82043; 82570; 83036; 83721

== ENCOUNTER 2023-12-01 07:36 | Outpatient (CLI) | payer OTHER ==
[2023-12-01 12:55] LABS: ESTIMATED AVERAGE GLUCOSE 163 mg/dL (70-100); HEMOGLOBIN A1c% 7.3 % (4.27-6.07)
[2023-12-01 13:02] LABS: CALCIUM 10.1 mg/dL (8.5-10.3); POTASSIUM 4.2 mmol/L (3.5-4.5)
== END 2023-12-01 07:37 | disposition home or self-care (01) ==
LOC: LAB.N 07:36
PROVIDERS: ATTEND Internal Medicine
DX: E11.8 Type 2 diabetes mellitus with unspecified complications (principal); Z79.4 Long term (current) use of insulin
CPT/HCPCS: 36415; 80048; 83036

== ENCOUNTER 2023-12-06 15:27 | Outpatient (CLI) | payer OTHER ==
--- NOTE | 2023-12-06 21:26 | Ultrasound Report ---
PROCEDURE: Pelvic w/Transvaginal INDICATIONS: POST MENOPAUSAL BLEEDING TECHNIQUE: Real-time scanning was performed of the pelvic organs, with image documentation. Additional endovagi nal scanning was necessary due to incomplete visualization of the adnexal and endometrial structures by transabdominal scanning. COMPARISON: Pelvic ultrasound 11/21/2020. FINDINGS: Uterus: Uterus is retroverted and normal in size at 7.5 x 5.5 x 6.3 cm. The myometrium is heterogen eous. The endometrium measures 8 mm in combined thickness. Trace fluid is seen in the endometrial c anal. Multiple uterine fibroids are present as follows: Right anterior intramural fibroid measures 1.9 x 2.3 x 2.0 cm, previously 3.4 cm. Midline central subserosal mucosal fibroid measures 1.8 x 1.6 x 1.8 cm, previously 2.1 cm. Midline anterior subserosal fibroid measures 2.5 x 3.2 x 2.5 cm, not previously described. Left posterior uterine fibroid measures 3.3 x 3.3 x 3.1 cm, previously 3.1 cm. Ovaries: The right ovary measures 2.6 x 1.8 x 2.3 cm. The left ovary measures 1.6 x 1.7 x 1.5 cm. The ovaries have a normal sonographic appearance. Less than 12 follicles can be seen in each ovary. No adnexal masses are seen. No cystic lesions measuring greater than 3 cm. Other: No pathologic free abdominal or pelvic fluid. IMPRESSION: 1.Multiple uterine fibroids again seen including a 1.8 cm submucosal fibroid. 2.Thickened endometrium in the setting of postmenopausal bleeding. Consider endometrial biopsy for fu rther evaluation. Reviewed by: Ranjan Yadav MD on 12/06/2023 9:24 PM PST Approved by: Ranjan Yadav MD on 12/06/2023 9:24 PM PST Station ID: [id number]
== END 2023-12-06 15:28 | disposition home or self-care (01) ==
LOC: DI 15:27
PROVIDERS: ATTEND Obstetrics & Gynecology
DX: N95.0 Postmenopausal bleeding (principal); E66.9 Obesity, unspecified; Z68.42 Body mass index [BMI] 45.0-49.9, adult; E11.8 Type 2 diabetes mellitus with unspecified complications; D25.1 Intramural leiomyoma of uterus; D25.2 Subserosal leiomyoma of uterus; R93.89 Abnormal findings on diagnostic imaging of other specified body structures

== ENCOUNTER 2024-04-21 07:18 | Day surgery (SDC) | payer OTHER ==
[2024-04-21] MEDS: LACTATED RINGERS 1,000 ML IV ONE ×2 (07:23→08:52)
--- NOTE | 2024-04-21 08:03 | ANESTHESIA ---
Pre-Anesthesia VS, & Labs - Diagnosis screening - Procedure colonoscopy Vital Signs: Temp Pulse Resp BP Pulse Ox O2 Flow Rate 35.8 C L 74 17 126/75 100 0 04/21/24 07:32 04/21/24 07:32 04/21/24 07:32 04/21/24 07:32 04/21/24 07:32 04/21/24 07:32 Height: 5 ft 2 in Weight (kg): 116 kg Body Mass Index: 46.7 BMI Classification: Morbidly Obese - NPO >8 hours - Is Patient ?: No - Lab Results Current Lab Results: Laboratory Tests 04/21/24 07:46: POC Whole Bld Glucose 220 H Home Medications and Allergies Home Medications: Ambulatory Orders Ezetimibe [Zetia] 10 mg PO DAILY 04/20/24 Semaglutide [Ozempic] 1 mg SQ OAW 04/20/24 Losartan [Cozaar] 100 mg PO DAILY 06/12/14 Ferrous Sulfate 325 mg PO DAILY 06/13/14 Metformin HCl 1,000 mg PO BID 06/13/14 Nadolol 80 mg PO DAILY 06/13/14 Spironolactone 25 mg PO BID 07/17/15 Aspirin [Aspirin EC] 81 mg PO DAILY 06/25/20 Empagliflozin [Jardiance] 25 mg PO DAILY 06/25/20 Insulin Lispro [Humalog Kwikpen U-100] 20 unit SUBQ TIDWM 06/25/20 L.acid/L.casei/B.bif/B.jacque/Fos [Probiotic Blend Capsule] 1 each PO DAILY 06/25/20 Magnesium 500 mg PO DAILY 06/25/20 Mecobalamin [B12 Active] 1,000 mcg PO DAILY 06/25/20 Esomeprazole Magnesium [Nexium] 40 mg PO DAILY 09/16/22 Insulin Glargine,Hum.rec.anlog [Basaglar Kwikpen U-100] 18 - 36 unit SUBQ BID 09/16/22 Isosorbide Mononitrate ER [Imdur] 30 mg PO DAILY 09/16/22 Ezetimibe [Zetia] 10 mg PO DAILY 04/20/24 Semaglutide [Ozempic] 1 mg SQ OAW 04/20/24 Allergies/Adverse Reactions: Allergies Allergy/AdvReac Type Severity Reaction Status Date / Time promethazine HCl * Allergy Unknown Verified 06/12/14 14:23 [From Phenergan] lisinopril AdvReac Intermediate Unknown Verified 07/17/15 07:03 Anes History & Medical History - Anesthetic History Anesthesia Complications: reports: No previous complications Family history of Anesthesia Complications: Denies Family history of Malignant Hyperthermia: Denies - Medical History Cardiovascular: reports: Hypertension, High cholesterol, Coronary artery disease Pulmonary: reports: None Gastrointestinal: reports: GERD Urinary: reports: None Neuro: reports: Migraines, Other (hx of chiari malormation) Musculoskeletal: reports: Osteoarthritis Endocrine/Autoimmune: reports: Type 2 diabetes Skin: reports: None Smoking Status: Never smoker Psychosocial: reports: No issues indicated History of Cancer?: No - Surgical History General: reports: Other Gynecologic: reports: section Orthopedic: reports: Spine surgery, Other Exam General: Alert, Oriented x3, Cooperative Dental: WNL Mouth Openin Fingerbreadth Neck Mobility: Normal Mallampati classification: II Thyromental Distance: 4-6 cm Respiratory: Lungs clear Cardiovascular: Regular rate Plan Anesthesia Type: General, Total IV Consent for Procedure(s) Verified and Reviewed: Yes Code Status: Attempt Resuscitation ASA classification: 3-Severe systemic disease Is this case an emergency?: No
[2024-04-21] MEDS ORDERED: LIDOCAINE-MPF 2% 5 ML VIAL ONE (08:16)
[2024-04-21] MEDS ORDERED: PROPOFOL 500 MG/50 ML 500 MG/50 ML VIAL ONE (08:16)
[2024-04-21 09:19] VITALS: BP 91/60; O2SAT 99
--- NOTE | 2024-04-21 10:42 | ANESTHESIA POST OP EVALUATION ---
Anesthesia Post Eval - Post Anesthesia Eval Vitals: Last Vital Signs Temp 36.0 C L 04/21/24 09:10 Pulse 68 04/21/24 09:10 Resp 16 04/21/24 09:10 BP 91/60 04/21/24 09:10 Pulse Ox 99 04/21/24 09:10 O2 Flow Rate 0 04/21/24 07:32 CV Function Including HR & BP: Stable Pain Control: Satisfactory Nausea & Vomiting: Negative Mental Status: Baseline Respiratory Status: Airway Patent Hydration Status: Satisfactory Anesthesia Complications: None
== END 2024-04-21 07:19 | disposition home or self-care (01) ==
LOC: SDS 07:18
PROVIDERS: ATTEND Surgery
DX: Z12.11 Encounter for screening for malignant neoplasm of colon (principal); K57.30 Diverticulosis of large intestine without perforation or abscess without bleeding; I25.10 Atherosclerotic heart disease of native coronary artery without angina pectoris; E66.01 Morbid (severe) obesity due to excess calories; Z68.42 Body mass index [BMI] 45.0-49.9, adult; E11.9 Type 2 diabetes mellitus without complications; Z79.4 Long term (current) use of insulin; Z79.84 Long term (current) use of oral hypoglycemic drugs
CPT/HCPCS: 45378; J7120

== ENCOUNTER 2024-06-16 07:58 | Outpatient (CLI) | payer OTHER ==
--- NOTE | 2024-06-17 10:54 | Mammography Report ---
BILATERAL DIGITAL SCREENING MAMMOGRAM 3D/2D: 06/16/2024 CLINICAL: Routine screening. Comparison is made to exams dated: 05/29/2023 mammogram, 06/04/2022 mammogram, 12/13/2020 mammogram, 05/14 mammogram, and 04/09/2018 mammogram - [facility]. There are scattered areas of fibroglandular density in both breasts (category b / 25%-50% glandular t issue). No significant masses, calcifications, or other findings are seen in either breast. There has been no significant interval change. IMPRESSION: NEGATIVE There is no mammographic evidence of malignancy. A 1 year screening mammogram is recommended. Based on the Tyrer Cuzick model (a risk assessment model) the patient's lifetime risk is 7.8% and her 10 year risk is 3.2%. According to the ACR, ACS, and NCCN guidelines, an annual breast MRI exam avani g with mammogram is recommended if the patient's lifetime risk is 20% or greater. This exam was interpreted at Station ID: [id number]. NOTE: For mammograms, a report in lay terms will be sent to the patient. Approximately 15% of breast malignancies will not be visualized mammographically. In the management of a palpable breast mass, a negative mammogram must not discourage biopsy of a clinically suspicious lesion. Electronically Signed By: Papito skelton/jessica:06/16/2024 18:24:35 letter sent: No_Letter ACR BI-RADS Category 1: Negative 3341F PARENCHYMAL PATTERN: (A) - The breast(s) demonstrate(s) scattered fibroglandular densities. BI-RADS CATEGORY: (1) - 1 RECOMMENDATION: (ANNUAL) - Recommend routine annual screening mammography. [id number] 1 year screening LATERALITY: (B)
== END 2024-06-16 07:59 | disposition home or self-care (01) ==
LOC: DI 07:58
PROVIDERS: ATTEND Internal Medicine
DX: Z12.31 Encounter for screening mammogram for malignant neoplasm of breast (principal); R92.323 Mammographic fibroglandular density, bilateral breasts